=== PATIENT | male | born 1945 | race Caucasian/White ===

== ENCOUNTER 2016-07-24 14:25 | Emergency (ER) | payer OTHER, BC ==
[~2016-07-24] VITALS: Ht 185.4 cm; Wt 79.0 kg
[2016-07-24 14:40] VITALS: TEMP 36.7; Ht 185.4 cm; Wt 79.0 kg
[2016-07-24] MEDS ORDERED: DiphenhydrAMINE HCL 50 MG/ML VIAL IV STA (14:50)
[2016-07-24] MEDS ORDERED: FAMOTIDINE 20MG/102 ML D5W IV STA (14:50)
--- NOTE | 2016-07-24 14:52 | EMERGENCY ROOM VISIT NOTE ---
History Report prepared by Еленаibkatina: Haim Andrea Under the Supervision of: Dr. Timmy Ahn D.O. First contact with patient: 14:44 Chief Complaint: THROAT PAIN/INJURY Stated Complaint: THROAT PROBLEM History of Present Illness The patient is a 70 year old male who presents to the Emergency Room with complaints of persistent uvular swelling that started approximately 30 minutes prior to arrival. The patient was downtown when he felt like there was something in his throat. He looked in the mirror and noticed that his uvula was swollen. The patient also notes some chest tightness. The patient experienced uvular swelling once other time many years ago after a night of drinking, which resolved on its own. The patient has also experienced swelling of the lips in the past, which resolved with Benadryl. The patient did not eat anything out of the ordinary today. He has had everything he ate today before. The patient is not medicated for blood pressure. He is on Nexium and Propecia. He is s/p cholecystectomy. He denies tobacco use and rarely drinks alcohol. 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 A total of 10 systems reviewed and were otherwise negative. Past Medical & Surgical Medical Problems: (1) Lip swelling Family History No pertinent family history Social History Smoking Status: Never Smoker Alcohol Use: occasionally Occupation Status: retired Current/Historical Medications Scheduled Prednisone (Prednisone Tab), 40 MG PO DAILY Ranitidine Hcl (Zantac), 150 MG PO BID Physical Exam Vital Signs Date Time Temp Pulse Resp B/P Pulse Ox O2 Delivery O2 Flow Rate FiO2 07/24/16 15:54 51 16 136/88 99 07/24/16 14:40 96 Room Air 07/24/16 14:40 36.7 66 17 125/85 96 Room Air Physical Exam GENERAL: Patient is awake, alert, and in no acute distress. Patient is resting comfortably and showing no signs of anxiety EYES: The conjunctivae are clear. The pupils are round and reactive. EARS, NOSE, MOUTH AND THROAT: The nose is without any evidence of any deformity. Mucous membranes are moist tongue is midline Uvular hydrops noted, no soft palate involvement was noted. NECK: The neck is nontender and supple. RESPIRATORY: Normal respiratory effort is noted there is no evidence of wheezing rhonchi or rales CARDIOVASCULAR: Regular rate and rhythm noted there no murmurs rubs or gallops normal S1 normal S2 GASTROINTESTINAL: The abdomen is soft. Bowel sounds are present in all quadrants. Abdomen is nontender MUSCULOSKELETAL/EXTREMITIES: There is no evidence of gross deformity full range of motion is noted in the hips and shoulders SKIN: There is no obvious evidence of any rash. There are no petechiae, pallor or cyanosis noted. NEUROLOGIC: Patient is awake alert and oriented x3 strength is symmetric patellar reflexes are 2+ bilaterally Medical Decision & Procedures Medications Administered Medications (Trade) Dose Ordered Sig/Abhishek Route Start Time Stop Time Status Last Admin Dose Admin Diphenhydramine HCl (Benadryl Cap) 25 mg NOW ONCE PO 07/24/16 15:00 07/24/16 15:01 DC 07/24/16 15:03 25 MG Famotidine (Pepcid Tab) 20 mg NOW ONCE PO 07/24/16 15:00 07/24/16 15:01 DC 07/24/16 15:03 20 MG Dexamethasone Sodium Phosphate (Decadron Inj) 10 mg NOW ONCE PO 07/24/16 15:00 07/24/16 15:01 DC 07/24/16 15:08 10 MG ED Course 1445: The patient was evaluated in room A9b. A complete history and physical examination were performed. 1450: Benadryl 25 mg IV, Famotidine 20 mg IV. 1500: Decadron 10 mg PO, Famotidine 20 mg PO, Benadryl 25 mg PO, Decadron 10 mg IV. 1550: Upon reevaluation, the patient is was doing better. I discussed the results and treatment plan with him. He verbalized agreement of the treatment plan. He was discharged home. Medical Decision Prior records/ancillary studies reviewed. Triage Nursing notes reviewed. The patient's history was concerning for possible allergic reaction. Differential diagnosis: Etiologies such as allergic reaction, anaphylaxis, urticaria, Mccarthy-Ian syndrome, toxic epidermal necrolysis, erythema multiforme, cellulitis, as well as others were entertained. The patient is a 70-year-old male who presented to the emergency department for an evaluation of angioedema. The patient appeared to have uvular hydrops on exam. His history did not reveal any cause for this. The patient states he's had similar episodes in the past and usually respond to Benadryl. I offered to do IV fluids IV medications and further workup of the patient only wanted to be treated and discharged. The patient was treated with steroids and H2 blockers and antihistamines in the emergency department. On subsequent reevaluation he was significantly improved. He was encouraged to continue using Benadryl as directed. He was also encouraged to return to the emergency department immediately if symptoms change worsen or need arises. Impression Primary Impression: Uvular swelling Additional Impression: Angioedema Scribe Attestation The scribe's documentation has been prepared under my direction and personally reviewed by me in its entirety. I confirm that the note above accurately reflects all work, treatment, procedures, and medical decision making performed by me. Departure Information Dispostion Home / Self-Care Prescriptions Ranitidine Hcl (ZANTAC) 150 Mg Tab 150 MG PO BID, #60 TAB Prov: Timmy Ahn, DO 07/24/16 Prednisone (Prednisone Tab) 20 Mg Tab 40 MG PO DAILY, #10 TAB Prov: Timmy Ahn, DO 07/24/16 Referrals No Doctor, Assigned (PCP) Forms HOME CARE DOCUMENTATION FORM, IMPORTANT VISIT INFORMATION, WORK / SCHOOL INSTRUCTIONS Patient Instructions ED Angioedema, My [facility] Additional Instructions Continue taking Benadryl as directed for symptomatically relief. Drink plenty of clear liquids. Return to the emergency department immediately if symptoms change worsen or need arises. Problem Qualifiers Additional Impression: Angioedema Encounter type: initial encounter Qualified Codes: T78.3XXA - Angioneurotic edema, initial encounter
[2016-07-24] MEDS ORDERED: DEXAMETHASONE SOD INJ 10 MG/ML VIAL PO ONE (15:00)
[2016-07-24] MEDS ORDERED: DEXAMETHASONE SOD INJ 10 MG/ML VIAL IV ONE (15:00)
[2016-07-24] MEDS ORDERED: FAMOTIDINE 20 MG TAB PO ONE (15:00)
[2016-07-24] MEDS ORDERED: PRED20TA2 PO (15:47)
[2016-07-24] MEDS ORDERED: RANI150T3 PO (15:47)
[2016-07-24 15:54] VITALS: BP 136/88; PULSE 51; O2SAT 99
== END 2016-07-24 15:55 | disposition home or self-care (01) ==
LOC: C.EDB 14:28 → C.EDA 15:55
DX: T78.3XXA Angioneurotic edema, initial encounter (principal); X58.XXXA Exposure to other specified factors, initial encounter; Z90.49 Acquired absence of other specified parts of digestive tract; Z79.899 Other long term (current) drug therapy

== ENCOUNTER 2016-10-16 21:57 | Emergency (ER) | payer OTHER, BC ==
[~2016-10-16] VITALS: Ht 185.4 cm; Wt 74.7 kg
[~2016-10-16 21:57] MED LIST: PRED20TA2 PO; RANI150T3 PO
[2016-10-16 21:59] VITALS: TEMP 36.3; Ht 185.4 cm; Wt 74.7 kg
[2016-10-16] MEDS ORDERED: SODIUM CHLORIDE 0.9% 1000ML 1,000 ML IV STA (22:35)
[2016-10-16] MEDS ORDERED: ONDANSETRON INJ 2 MG/ML 2 ML VIAL IV STA (22:35)
[2016-10-16] MEDS ORDERED: ESOM20CA PO (22:39)
[2016-10-16] MEDS ORDERED: FINA1TAB3 PO (22:39)
[2016-10-16] MEDS ORDERED: CYAN500T13 PO (22:39)
--- NOTE | 2016-10-16 22:46 | EMERGENCY ROOM VISIT NOTE ---
History Report prepared by Еленаibkatina: Rayne Klein Under the Supervision of: Dr. Timmy Ahn D.O. First contact with patient: 22:26 Chief Complaint: BACK PAIN Stated Complaint: PAIN IN NACK AND UNDER RIBS,BILAT History of Present Illness The patient is a 71 year old male who presents to the Emergency Room with complaints of persistent back pain for the past day. He reports as he was driving up to [place] yesterday, he started experiencing bilateral back pain. He rates his pain as an 8/10 in severity and notes it radiates under his ribs. A heating pad provided immediate relief. He states after the pain went away, he went out to dinner, and after eating, the pain came back, so he decided to come to the ED. He notes he saw his PCP for a routine physical last week and "everything was fine". The patient admits he did experience similar pain approximately 2 months ago, but states a heating pad provided relief at that time as well. He denies any recent fevers, cough or cold symptoms, chest pain, shortness of breath or urinary symptoms. 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 A total of 10 systems reviewed and were otherwise negative. Past Medical & Surgical Medical Problems: (1) GERD (gastroesophageal reflux disease) (2) Lip swelling (3) Prostatitis Family History No pertinent family history Social History Smoking Status: Never Smoker Alcohol Use: none Drug Use: none Marital Status: Housing Status: lives with family Occupation Status: retired Current/Historical Medications Scheduled Cyanocobalamin (Vitamin B12 500MCG), 500 MCG PO DAILY Esomeprazole Magnesium (Nexium), 20 MG PO DAILY Finasteride (Propecia), 1 MG PO DAILY Scheduled PRN Oxycodone Immediate Rel Tab (Roxicodone Ir), 1-2 TAB PO Q4H PRN for Severe Pain Allergies Uncoded Allergies: PENICILLIN (Allergy, Intermediate, rash, 10/16/16) Physical Exam Vital Signs Date Time Temp Pulse Resp B/P (MAP) Pulse Ox O2 Delivery O2 Flow Rate FiO2 10/17/16 01:34 48 18 129/80 100 Room Air 10/16/16 23:30 42 18 129/79 100 Room Air 10/16/16 22:53 49 10/16/16 21:59 36.3 57 18 145/65 98 Room Air Physical Exam GENERAL: The patient is awake, alert, mildly anxious appearing and uncomfortable. EYES: The conjunctivae are clear. The pupils are round and reactive. EARS, NOSE, MOUTH AND THROAT: The nose is without any evidence of any deformity. Mucous membranes are moist tongue is midline NECK: The neck is nontender and supple. RESPIRATORY: Normal respiratory effort is noted there is no evidence of wheezing rhonchi or rales CARDIOVASCULAR: Regular rate and rhythm noted there no murmurs rubs or gallops normal S1 normal S2 GASTROINTESTINAL: The abdomen is mildly distended but soft, upper abdomen is tender to palpation, no guarding or rigidity. BACK: No midline tenderness or or step-off noted range of motion in flexion extension as well as rotation no signs of muscle spasm noted MUSCULOSKELETAL/EXTREMITIES: There is no evidence of gross deformity full range of motion is noted in the hips and shoulders SKIN: There is no obvious evidence of any rash. There are no petechiae, pallor or cyanosis noted. NEUROLOGIC: Patient is awake alert and oriented x3 strength is symmetric patellar reflexes are 2+ bilaterally Medical Decision & Procedures ER Provider Diagnostic Interpretation: CT the abdomen and pelvis was obtained in the emergency department. The report was reviewed. Preliminary Findings Only See Final Report For Complete Findings CT ABDOMEN & PELVIS: Multiple hyperdensities in the left renal parenchyma may represent hyperdense cysts but are nonspecific. Further characterization could be performed with ultrasound if clinically indicated. No renal or ureteral stone identified. No hydronephrosis in either kidney. Multiple mildly prominent fluid and gas-filled small bowel loops throughout the abdomen are nonspecific. Enteritis is not excluded. No evidence of small bowel obstruction. No bowel inflammation. Appendix not definitively identified, but no inflammatory changes in the right lower quadrant to suggest appendicitis. Possible fluid-filled small bowel loop versus isolated dilated distal left ureter, nonspecific. Mild dependent atelectasis bilaterally. Status post cholecystectomy. Stomach is distended with fluid. Large amount of stool throughout the colon may represent constipation. Probable changes of prior vasectomies. Punctate sclerotic foci in the pelvic bones may represent bone islands. Tiny fat-containing umbilical hernia. Radiologist: Chacha Connolly M.D. Study ready at 23:23 and initial results transmitted at 23:39 CHEST ONE VIEW PORTABLE CLINICAL HISTORY: ABDOMINAL PAIN/GI pain COMPARISON STUDY: No previous studies for comparison. FINDINGS: The bones soft tissues and hemidiaphragms are normal. The cardiomediastinal silhouette is normal. The lungs are clear. The pulmonary vasculature is normal. . Several old left side rib fractures IMPRESSION: Negative chest. The above report was generated using voice recognition software. It may contain grammatical, syntax or spelling errors. Electronically signed by: Wili Knight M.D. 10/16/2016 10:50 PM Laboratory Results 10/16/16 22:53 Red Blood Count 4.82, Mean Corpuscular Volume 92.5, Mean Corpuscular Hemoglobin 30.9, Mean Corpuscular Hemoglobin Concent 33.4, Mean Platelet Volume 10.2, Neutrophils (%) (Auto) 51.3, Lymphocytes (%) (Auto) 30.7, Monocytes (%) (Auto) 13.6, Eosinophils (%) (Auto) 3.5, Basophils (%) (Auto) 0.7, Neutrophils # (Auto ) 2.76, Lymphocytes # (Auto) 1.65, Monocytes # (Auto) 0.73, Eosinophils # (Auto ) 0.19, Basophils # (Auto) 0.04 10/16/16 22:53 Test 10/16/16 22:53 10/16/16 23:00 White Blood Count 5.38 K/uL (4.8-10.8) Red Blood Count 4.82 M/uL (4.7-6.1) Hemoglobin 14.9 g/dL (14.0-18.0) Hematocrit 44.6 % (42-52) Mean Corpuscular Volume 92.5 fL (80-100) Mean Corpuscular Hemoglobin 30.9 pg (25-34) Mean Corpuscular Hemoglobin Concent 33.4 g/dl (32-36) Platelet Count 246 K/uL (130-400) Mean Platelet Volume 10.2 fL (7.4-10.4) Neutrophils (%) (Auto) 51.3 % Lymphocytes (%) (Auto) 30.7 % Monocytes (%) (Auto) 13.6 % Eosinophils (%) (Auto) 3.5 % Basophils (%) (Auto) 0.7 % Neutrophils # (Auto) 2.76 K/uL (1.4-6.5) Lymphocytes # (Auto) 1.65 K/uL (1.2-3.4) Monocytes # (Auto) 0.73 K/uL (0.11-0.59) Eosinophils # (Auto) 0.19 K/uL (0-0.5) Basophils # (Auto) 0.04 K/uL (0-0.2) RDW Standard Deviation 42.4 fL (36.4-46.3) RDW Coefficient of Variation 12.6 % (11.5-14.5) Immature Granulocyte % (Auto) 0.2 % Immature Granulocyte # (Auto) 0.01 K/uL (0.00-0.02) Prothrombin Time 10.6 SECONDS (9.0-12.0) Prothromb Time International Ratio 1.0 (0.9-1.1) Activated Partial Thromboplast Time 26.1 SECONDS (21.0-31.0) Partial Thromboplastin Ratio 1.0 Anion Gap 7.0 mmol/L (3-11) Est Creatinine Clear Calc Drug Dose 60.5 ml/min Estimated GFR () 70.6 Estimated GFR (Non- 60.9 BUN/Creatinine Ratio 11.9 (10-20) Calcium Level 9.0 mg/dl (8.5-10.1) Total Bilirubin 0.3 mg/dl (0.2-1) Direct Bilirubin 0.1 mg/dl (0-0.2) Aspartate Amino Transf (AST/SGOT) 23 U/L (15-37) Alanine Aminotransferase (ALT/SGPT) 25 U/L (12-78) Alkaline Phosphatase 115 U/L (45-117) Total Creatine Kinase 173 U/L (39-308) Creatine Kinase MB 4.2 ng/ml (0.5-3.6) Creatine Kinase MB Ratio 2.4 (0-3.0) Troponin I < 0.015 ng/ml (0-0.045) Total Protein 6.8 gm/dl (6.4-8.2) Albumin 3.6 gm/dl (3.4-5.0) Lipase 257 U/L (73-393) Urine Color YELLOW Urine Appearance CLEAR (CLEAR) Urine pH 7.0 (4.5-7.5) Urine Specific [place] 1.008 (1.000-1.030) Urine Protein NEG (NEG) Urine Glucose (UA) NEG (NEG) Urine Ketones NEG (NEG) Urine Occult Blood NEG (NEG) Urine Nitrite NEG (NEG) Urine Bilirubin NEG (NEG) Urine Urobilinogen NEG (NEG) Urine Leukocyte Esterase NEG (NEG) Laboratory results per my review. Medications Administered Medications (Trade) Dose Ordered Sig/Abhishek Route Start Time Stop Time Status Last Admin Dose Admin Morphine Sulfate (MoRPHine SULFATE INJ) 4 mg Q15M PRN IV 10/16/16 22:45 10/30/16 22:44 10/17/16 00:06 4 MG Ondansetron HCl (Zofran Inj) 4 mg NOW STAT IV 10/16/16 22:35 10/16/16 22:36 DC 10/16/16 23:02 4 MG Sodium Chloride 1,000 ml @ 999 mls/hr Q1H1M STAT IV 10/16/16 22:35 10/16/16 23:35 DC 10/16/16 23:01 999 MLS/HR ECG Indication: back/shoulder pain Rate (beats per minute): 48 Rhythm: sinus bradycardia Findings: no ectopy, other (No acute ST segment abnormalities) Change: no significant change (No change when compared to EKG from July 24, 2016) ED Course 2230: The patient was evaluated in room B7. A complete history and physical examination were performed. 2245: Morphine Sulfate 4 mg IV. 2325: NSS 1000 ml @ 999 mls/hr IV, Zofran 4 mg IV. 0055: I reevaluated the patient. He is not feeling much better. I discussed my recommendation that he remain in the hospital for further evaluation and management. He verbalized complete understanding and agreement. 0105: I discussed the patients case with Dr. Concepcion, [facility] Hospitalist. The patient will be further evaluated. 0120: Dr. Concepcion informed me the patient would like to leave A. I will write up discharge instructions. Medical Decision Prior records/ancillary studies reviewed. Triage Nursing notes reviewed. The patient's history was concerning for back pain. Differential diagnosis: Etiologies such as musculoskeletal, disc herniation, fracture, aortic disease, metastatic disease, cord compression, discitis, infection, renal colic, gastrointestinal, acute exacerbation of chronic back pain, sciatica, cauda equina, as well as others were entertained. The patient is a 71-year-old male who presented to the emergency department for an evaluation of bilateral flank pain. The patient states that he's had similar episodes in the past. The pain became worse today while he was driving to town. The patient is currently not from our area. The patient was treated with IV fluids and IV pain medications in the emergency department. On subsequent reevaluation he was somewhat improved. I discussed the patient's laboratory and radiographic studies with him. No definite cause could be found for his back pain. The back pain did not appear to be musculoskeletal and reproducible nature. He did have abdominal tenderness but he did not appear to have a physical exam consistent with an acute surgical abdomen. Because of the patient' s ongoing pain I discussed his case with the on-call [facility] hospitalist group. They have agreed to evaluate the patient in the emergency department for further management and disposition. Once the patient was evaluated by the [facility]ist group he decided he wished to be managed as an outpatient and was discharged home. He was encouraged to rest and avoid any strenuous activity. She was also encouraged to return to the emergency apartment immediately if symptoms change worsen or the need arises. Otherwise he was advised to follow-up for a renal ultrasound because of the findings on CAT scan. Consults Time Called: 0100 Consulting Physician: Dr. Concepcion, [facility] Hospitalist Returned Call: 0105 I discussed the patients case with Dr. Concepcion [facility] Hospitalist. The patient will be further evaluated. Impression Primary Impression: Intractable upper abdominal pain Additional Impression: Intractable back pain Scribe Attestation The scribe's documentation has been prepared under my direction and personally reviewed by me in its entirety. I confirm that the note above accurately reflects all work, treatment, procedures, and medical decision making performed by me. Departure Information Dispostion Home / Self-Care Prescriptions Oxycodone Immediate Rel Tab (ROXICODONE IR) 5 Mg Tab 1-2 TAB PO Q4H Y for Severe Pain, #24 TAB Prov: Timmy Ahn, DO 10/17/16 Referrals No Doctor, Assigned (PCP) Patient Instructions ED Abdominal Pain Unkn Cause Male, My [facility] Additional Instructions Continue all medications as prescribed. Rest and avoid any strenuous activity. Call your family DrHenrry to schedule a follow-up appointment as soon as possible. Also discuss with your family doctor any further studies specifically an ultrasound of the kidneys to evaluate the abnormalities noted on CAT scan this evening. Continue using Motrin and Tylenol as directed for mild pain. Return to the emergency department if symptoms change worsen or the need arises. Start taking an [id number] stool softener especially if you are going to start taking the stronger pain medication. Problem Qualifiers
--- NOTE | 2016-10-16 22:51 | DIAGNOSTIC IMAGING REPORT ---
CHEST ONE VIEW PORTABLE CLINICAL HISTORY: ABDOMINAL PAIN/GI pain COMPARISON STUDY: No previous studies for comparison. FINDINGS: The bones soft tissues and hemidiaphragms are normal. The cardiomediastinal silhouette is normal. The lungs are clear. The pulmonary vasculature is normal. . Several old left side rib fractures IMPRESSION: Negative chest. The above report was generated using voice recognition software. It may contain grammatical, syntax or spelling errors. Electronically signed by: Wili Knight M.D. 10/16/2016 10:50 PM Dictated Date/Time: 10/16/2016 10:49 PM
[2016-10-16] MEDS: MoRPHine SULFATE 4 MG/ML 1 ML CARP IV PRN (23:02)
[2016-10-16 23:06] LABS: BASO % 0.7 %; BASO ABS # 0.04 K/uL (0-0.2); COMPLETE YES; EOS % 3.5 %; HEMATOCRIT 44.6 % (42-52); IG% 0.2 %; LYMPH % 30.7 %; LYMPH ABS # 1.65 K/uL (1.2-3.4); MEAN CELL VOLUME 92.5 fL (80-100); MEAN CORPUSCULAR HEMOGLOBIN 30.9 pg (25-34); MEAN CORPUSCULAR HGB CONC 33.4 g/dl (32-36); MEAN PLATELET VOLUME 10.2 fL (7.4-10.4); MONO % 13.6 %; NEUT % 51.3 %; PLATELET COUNT 246 K/uL (130-400); RED BLOOD COUNT 4.82 M/uL (4.7-6.1); WHITE BLOOD COUNT 5.38 K/uL (4.8-10.8)
[2016-10-16 23:16] LABS: URINE APPEARANCE CLEAR (CLEAR); URINE BILIRUBIN NEG (NEG); URINE COLOR YELLOW; URINE NITRITE NEG (NEG); URINE SPECIFIC GRAVITY 1.008 (1.000-1.030); UROBILINOGEN NEG (NEG)
[2016-10-16 23:16] LABS: PROTHROMBIN TIME (PATIENT) 10.6 SECONDS (9.0-12.0)
[2016-10-16 23:17] LABS: MANUAL MICROSCOPIC REQUIRED? NO; REVIEW REQ? NO
[2016-10-16 23:35] LABS: ALT/SGPT 25 U/L (12-78); BLOOD UREA NITROGEN 14 mg/dl (7-18); BUN/CREATININE RATIO 11.9 (10-20); CARBON DIOXIDE 30 mmol/L (21-32); CHLORIDE 102 mmol/L (98-107); GLUCOSE 64 mg/dl (70-99); POTASSIUM 4.1 mmol/L (3.5-5.1); SODIUM 139 mmol/L (136-145)
[2016-10-16 23:40] LABS: ALKALINE PHOSPHATASE 115 U/L (45-117); AST/SGOT 23 U/L (15-37); CKMB/CK RATIO 2.4 (0-3.0)
[2016-10-17] MEDS: MoRPHine SULFATE 4 MG/ML 1 ML CARP IV PRN (00:06)
[2016-10-17] MEDS ORDERED: OXYC1TAB3 PO (01:23)
[2016-10-17] MEDS ORDERED: OXYCODONE IR HOME PACK PO ONE (01:30)
[2016-10-17 01:34] VITALS: BP 129/80; PULSE 48; O2SAT 100
--- NOTE | 2016-10-17 05:50 | DIAGNOSTIC IMAGING REPORT ---
ABD/PELVIS NO IV OR ORAL CONT CT DOSE: 343.77 mGy.cm HISTORY: Flank pain flank pain TECHNIQUE: Multiaxial CT images of the abdomen and pelvis were performed without contrast. COMPARISON STUDY: None. FINDINGS: The lung bases are clear. The unenhanced liver, spleen, gallbladder, pancreas, kidneys, and adrenal glands are within normal limits. Mild reactive small bowel ileus/enteritis. The pelvic organs are unremarkable. No suspicious lytic or blastic osseous lesions. Incidental note is made of a 3 mm nonobstructing lower pole left renal calcification, as well as several very small hyperdense left renal cyst. Prior cholecystectomy. Fluid-filled stomach. Moderate fecal load throughout the colon consistent with a component of fecal stasis. 3 mm calcification lower right soft tissue pelvis most likely related to vascular calcification. IMPRESSION: 1. 3 mm nonobstructing lower pole left renal calcification. 2. Increased fecal load throughout the colon consistent with a component of fecal stasis. 3. Prior cholecystectomy 4. Mild reactive ileus versus nonobstructive enteritis The above report was generated using voice recognition software. It may contain grammatical, syntax or spelling errors. Electronically signed by: Wili Knight M.D. 10/17/2016 5:49 AM Dictated Date/Time: 10/17/2016 5:46 AM
== END 2016-10-17 01:36 | disposition home or self-care (01) ==
LOC: C.EDB 21:57
DX: R10.10 Upper abdominal pain, unspecified (principal); M54.9 Dorsalgia, unspecified; K21.9 Gastro-esophageal reflux disease without esophagitis; N41.9 Inflammatory disease of prostate, unspecified; Z79.899 Other long term (current) drug therapy